=== PATIENT | male | born 1985 | race Caucasian/White ===

== ENCOUNTER 2017-07-17 20:27 | Inpatient (IN) | payer OTHER ==
[~2017-07-17] VITALS: Ht 177.8 cm; Wt 72.7 kg
[~2017-07-17 20:27] MED LIST: CELEXA PO
[2017-07-17 22:06] LABS: BASOPHIL % 0.8 % (0-2); PLATELET COUNT 203 x10^3mcL (130-400); RED CELL DISTRIBUTION WIDTH 14.2 % (11.5-14.5)
[2017-07-17 22:18] LABS: CALCIUM 8.7 mg/dL (8.5-10.1); CARBON DIOXIDE 29.2 mmol/L (21-32); CHLORIDE SERUM 108 mmol/L (98-107); GFR1 > 60 mL/min; GLUCOSE SERUM 110 mg/dL (74-106); POTASSIUM SERUM 3.6 mmol/L (3.5-5.1); SODIUM SERUM 144 mmol/L (136-145)
[2017-07-17 22:23] LABS: ALBUMIN 3.9 g/dL (3.4-5.0); ALKALINE PHOSPHATASE 67 U/L (46-116); ALT/SGPT 31 U/L (16-63); AMYLASE 72 U/L (25-115); AST/SGOT 10 U/L (15-37); BILIRUBIN TOTAL 0.35 mg/dL (0.20-1.00); LIPASE 626 IU/L (73-393); TOTAL PROTEIN, SERUM 6.6 g/dL (6.4-8.2)
[2017-07-17] MEDS ORDERED: CELEXA40 MG PO (23:35)
[2017-07-18 00:21] VITALS: BP 135/94
[2017-07-18 00:54] LABS: microscopic required? NO
[2017-07-18 01:01] LABS: urine erythrocyte NEGATIVE (NEGATIVE)
[2017-07-18 01:14] LABS: AMPHETAMINE QUAL UR NONE DETECTED (NEG <=1000)
[2017-07-18 03:14] LABS: MAGNESIUM 2.4 mg/dL (1.8-2.4); PHOSPHOROUS 2.5 mg/dL (2.5-4.9)
[2017-07-18 03:25] LABS: T3 TOTAL 1.04 ng/mL
[2017-07-18 03:29] LABS: FREE T4 0.98 ng/dL (0.76-1.46); FREE THYROXINE INDEX 1.9 ug/dL (1.4-4.5); T4(THYROXINE) 5.1 ug/dL (4.7-13.3)
[2017-07-18 05:49] VITALS: BP 135/94
[2017-07-18 09:10] LABS: BASOPHIL % 0.5 % (0-2); PLATELET COUNT 204 x10^3mcL (130-400); RED CELL DISTRIBUTION WIDTH 14.3 % (11.5-14.5)
[2017-07-18 09:20] VITALS: BP 142/96
[2017-07-18 09:21] LABS: CALCIUM 8.2 mg/dL (8.5-10.1); CARBON DIOXIDE 32.1 mmol/L (21-32); CHLORIDE SERUM 109 mmol/L (98-107); GFR1 > 60 mL/min; GLUCOSE SERUM 92 mg/dL (74-106); POTASSIUM SERUM 4.3 mmol/L (3.5-5.1); SODIUM SERUM 148 mmol/L (136-145)
[2017-07-18 13:40] VITALS: BP 139/93
[2017-07-18 17:15] VITALS: BP 130/97
[2017-07-18 22:04] VITALS: BP 122/87
[2017-07-19 06:02] VITALS: BP 105/69
[2017-07-19 06:08] LABS: BASOPHIL % 0.2 % (0-2); PLATELET COUNT 189 x10^3mcL (130-400); RED CELL DISTRIBUTION WIDTH 14.1 % (11.5-14.5)
[2017-07-19 06:28] LABS: CALCIUM 8.7 mg/dL (8.5-10.1); CARBON DIOXIDE 28.5 mmol/L (21-32); CHLORIDE SERUM 103 mmol/L (98-107); CREATININE SERUM 1.2 mg/dL (0.7-1.3); GFR1 > 60 mL/min; GLUCOSE SERUM 115 mg/dL (74-106); PHOSPHOROUS 3.6 mg/dL (2.5-4.9); POTASSIUM SERUM 4.9 mmol/L (3.5-5.1); SODIUM SERUM 141 mmol/L (136-145)
[2017-07-19 11:36] VITALS: BP 110/72
[2017-07-19 15:41] VITALS: BP 133/98
[2017-07-19 16:35] VITALS: BP 107/71
[2017-07-19 21:58] VITALS: BP 98/62
[2017-07-20 06:11] VITALS: BP 109/72
[2017-07-20 06:27] LABS: BASOPHIL % 0.7 % (0-2); PLATELET COUNT 159 x10^3mcL (130-400); RED CELL DISTRIBUTION WIDTH 14.3 % (11.5-14.5)
[2017-07-20 06:57] LABS: CALCIUM 8.1 mg/dL (8.5-10.1); CARBON DIOXIDE 29.4 mmol/L (21-32); CHLORIDE SERUM 107 mmol/L (98-107); CREATININE SERUM 0.8 mg/dL (0.7-1.3); GFR1 > 60 mL/min; GLUCOSE SERUM 82 mg/dL (74-106); MAGNESIUM 2.1 mg/dL (1.8-2.4); PHOSPHOROUS 3.4 mg/dL (2.5-4.9); POTASSIUM SERUM 4.1 mmol/L (3.5-5.1); SODIUM SERUM 142 mmol/L (136-145)
[2017-07-20 08:25] VITALS: BP 123/85
[2017-07-20] MEDS ORDERED: NORCO1 TA1 PO (10:09)
[2017-07-20 12:50] VITALS: BP 123/85
[2017-07-20 14:56] VITALS: BP 121/87
== END 2017-07-20 15:20 | disposition home or self-care (01) | DRG 263 ==
LOC: ED 20:27 → DU 23:28
PROVIDERS: Emergency Medicine; Family Medicine; Surgery
PROC: 0FT44ZZ Resection of Gallbladder, Percutaneous Endoscopic Approach (ICD-10-PCS; principal; 2017-07-18 10:00)
DX: K80.70 Calculus of gallbladder and bile duct without cholecystitis without obstruction (principal); E87.0 Hyperosmolality and hypernatremia; E87.8 Other disorders of electrolyte and fluid balance, not elsewhere classified; K85.10 Biliary acute pancreatitis without necrosis or infection; F41.1 Generalized anxiety disorder; F32.9 Major depressive disorder, single episode, unspecified; Z79.899 Other long term (current) drug therapy
CPT/HCPCS: 83880; 84439; 90658; 94150; J0330; J0690; J1170; J1200; J1644; J1885; J2175; J2250; J2270; J2405; J2704; J3010; J3490; J7030; J7120; Q0092

== ENCOUNTER 2017-08-08 22:05 | Emergency (ER) | payer OTHER ==
[~2017-08-08] VITALS: Ht 177.8 cm; Wt 73.9 kg
[~2017-08-08 22:05] MED LIST changes: +CELEXA40 MG PO; +NORCO1 TA1 PO
[2017-08-08 22:32] VITALS: Ht 177.8 cm; Wt 73.9 kg
[2017-08-09 01:32] LABS: BASOPHIL % 1.2 % (0-2); PLATELET COUNT 318 x10^3mcL (130-400); RED CELL DISTRIBUTION WIDTH 13.8 % (11.5-14.5)
[2017-08-09 01:48] LABS: CALCIUM 8.8 mg/dL (8.5-10.1); CHLORIDE SERUM 106 mmol/L (98-107); CREATININE SERUM 0.9 mg/dL (0.7-1.3); GFR1 > 60 mL/min; GLUCOSE SERUM 98 mg/dL (74-106); POTASSIUM SERUM 4.4 mmol/L (3.5-5.1); SODIUM SERUM 142 mmol/L (136-145)
[2017-08-09 01:52] LABS: ALBUMIN 3.9 g/dL (3.4-5.0); ALKALINE PHOSPHATASE 76 U/L (46-116); ALT/SGPT 36 U/L (16-63); AST/SGOT 15 U/L (15-37); BILIRUBIN TOTAL 0.34 mg/dL (0.20-1.00); LIPASE 218 IU/L (73-393); TOTAL PROTEIN, SERUM 6.9 g/dL (6.4-8.2)
[2017-08-09 04:05] VITALS: BP 147/94
== END 2017-08-09 04:05 | disposition home or self-care (01) ==
LOC: ED 22:05
PROVIDERS: Emergency Medicine
DX: R10.11 Right upper quadrant pain (principal); Z90.49 Acquired absence of other specified parts of digestive tract
CPT/HCPCS: J2270; J2405; J7030; Q9967

== ENCOUNTER 2018-03-23 09:16 | Emergency (ER) | payer OTHER ==
[~2018-03-23] VITALS: Ht 177.8 cm; Wt 77.1 kg
[2018-03-23 10:38] VITALS: BP 123/78
== END 2018-03-23 11:28 | disposition home or self-care (01) ==
LOC: ED 09:16
DX: S01.01XA Laceration without foreign body of scalp, initial encounter (principal); S61.256A Open bite of right little finger without damage to nail, initial encounter; F32.9 Major depressive disorder, single episode, unspecified; F41.9 Anxiety disorder, unspecified; Z90.49 Acquired absence of other specified parts of digestive tract; Z87.442 Personal history of urinary calculi; Y04.8XXA Assault by other bodily force, initial encounter; Y93.89 Activity, other specified; Y92.89 Other specified places as the place of occurrence of the external cause; Y99.8 Other external cause status
CPT/HCPCS: 90715

== ENCOUNTER 2018-04-02 15:13 | Emergency (ER) | payer OTHER ==
[~2018-04-02] VITALS: Ht 177.8 cm; Wt 26.3 kg
[2018-04-02 15:43] VITALS: Ht 177.8 cm; Wt 26.3 kg
[2018-04-02 16:36] VITALS: BP 118/90
== END 2018-04-02 16:36 | disposition home or self-care (01) ==
LOC: ED 15:13
DX: S01.01XD Laceration without foreign body of scalp, subsequent encounter (principal); Y04.0XXD Assault by unarmed brawl or fight, subsequent encounter; F32.9 Major depressive disorder, single episode, unspecified; Z90.49 Acquired absence of other specified parts of digestive tract

== ENCOUNTER 2018-08-27 16:13 | Emergency (ER) | payer OTHER ==
[~2018-08-27] VITALS: Ht 177.8 cm; Wt 80.7 kg
[2018-08-27 16:29] VITALS: Ht 177.8 cm; Wt 80.7 kg
[2018-08-27 17:34] VITALS: BP 127/91
== END 2018-08-27 17:33 | disposition home or self-care (01) ==
LOC: ED 16:13
DX: S39.012A Strain of muscle, fascia and tendon of lower back, initial encounter (principal); F32.9 Major depressive disorder, single episode, unspecified; F41.9 Anxiety disorder, unspecified; Z87.442 Personal history of urinary calculi; Z90.49 Acquired absence of other specified parts of digestive tract; X50.0XXA Overexertion from strenuous movement or load, initial encounter; Y93.89 Activity, other specified; Y92.89 Other specified places as the place of occurrence of the external cause; Y99.8 Other external cause status
CPT/HCPCS: J1885

== ENCOUNTER 2018-10-14 23:39 | Emergency (ER) | payer OTHER ==
[~2018-10-14] VITALS: Ht 177.8 cm; Wt 78.7 kg
[2018-10-15 00:09] VITALS: BP 146/89; Ht 177.8 cm; Wt 78.7 kg
== END 2018-10-15 01:24 | disposition home or self-care (01) ==
LOC: ED 23:39
DX: L03.211 Cellulitis of face (principal); L70.9 Acne, unspecified; K04.7 Periapical abscess without sinus; F32.9 Major depressive disorder, single episode, unspecified; F41.9 Anxiety disorder, unspecified; Z90.49 Acquired absence of other specified parts of digestive tract; Z87.442 Personal history of urinary calculi

== ENCOUNTER 2018-11-05 17:09 | Emergency (ER) | payer OTHER ==
[~2018-11-05] VITALS: Ht 177.8 cm; Wt 75.7 kg
[2018-11-05 17:11] VITALS: BP 145/102; Ht 177.8 cm; Wt 75.7 kg
[2018-11-05 17:47] LABS: PLATELET COUNT 328 x10^3mcL (130-400); RED CELL DISTRIBUTION WIDTH 12.9 % (11.5-14.5)
[2018-11-05 17:54] LABS: CALCIUM 9.9 mg/dL (8.5-10.1); CARBON DIOXIDE 27.9 mmol/L (21-32); CHLORIDE SERUM 107 mmol/L (98-107); GFR1 > 60 mL/min; GLUCOSE SERUM 128 mg/dL (74-106); POTASSIUM SERUM 4.6 mmol/L (3.5-5.1); SODIUM SERUM 144 mmol/L (136-145)
[2018-11-05 17:58] LABS: ALBUMIN 4.4 g/dL (3.4-5.0); ALKALINE PHOSPHATASE 110 U/L (46-116); ALT/SGPT 32 U/L (16-63); AST/SGOT 6 U/L (15-37); BILIRUBIN TOTAL 0.39 mg/dL (0.20-1.00); TOTAL PROTEIN, SERUM 7.8 g/dL (6.4-8.2)
== END 2018-11-05 18:47 | disposition left against medical advice (07) ==
LOC: ED 17:09
DX: Z53.21 Procedure and treatment not carried out due to patient leaving prior to being seen by health care provider (principal)